=== PATIENT | female | born 1935 | race Caucasian/White ===

== ENCOUNTER 2017-06-09 21:07 | Emergency (ER) | payer MEDICAID ==
[~2017-06-09] VITALS: Ht 149.9 cm; Wt 53.0 kg
[2017-06-09] MEDS ORDERED: ONDANSETRON HCL 4MG/2ML VIAL IV STA (22:44)
[2017-06-09] MEDS ORDERED: MORPHINE SULFATE 4 MG/ML CPJ (NOT FOR IM USE) IV STA (22:44)
[2017-06-09] MEDS ORDERED: SODIUM CHLORIDE 0.9% 1,000 ML IV ONE (22:44)
[2017-06-09 23:18] LABS: HEMATOCRIT. 38.8 % (36.0-48.0); HEMOGLOBIN. 12.9 g/dL (12.0-16.0); MEAN CORPUSCULAR HEMOGLOBIN 28.6 pg (28.0-32.0); MEAN CORPUSCULAR VOLUME 86.1 fL (81.0-99.0); MEAN PLATELET VOLUME 9.6 fl (7.4-10.4); PLATELET 244 x1000/uL (130-400); RED BLOOD CELL COUNT 4.51 mill/uL (4.2-5.4); RED CELL DISTRIBUTION WIDTH 13.5 % (11.6-14.6)
[2017-06-09 23:19] LABS: CHLORIDE 102 mEq/L (98-107)
[2017-06-09 23:22] LABS: INR 2.2; PROTHROMBIN TIME 23.3 sec (9.4-11.6)
[2017-06-09 23:32] LABS: CLARITY URINE CLEAR (CLEAR); COLOR URINE YELLOW (YELLOW); KETONES URINE NEGATIVE (NEGATIVE); LEUKOCYTE ESTERASE URINE NEGATIVE (NEGATIVE); NITRITE URINE NEGATIVE (NEGATIVE); OCCULT BLOOD URINE 1+ (NEGATIVE); PROTEIN URINE 3+ (NEGATIVE); SPECIFIC GRAVITY URINE 1.012 (1.005-1.030); UROBILINOGEN URINE 0.2 E.U./dL (0.2-1.0)
[2017-06-09] MEDS ORDERED: IOHEXOL-350 100 ML BOTTLE ONE (23:39)
[2017-06-10] MEDS ORDERED: SODIUM CHLORIDE 0.9% 1,000 ML IV ONE (01:22)
[2017-06-10] MEDS ORDERED: CARV3.1242 PO (01:23)
[2017-06-10] MEDS ORDERED: DIGO250T4 PO (01:23)
[2017-06-10] MEDS ORDERED: GLIM2TAB2 PO (01:25)
[2017-06-10] MEDS ORDERED: CHOL20004 PO (01:26)
[2017-06-10] MEDS ORDERED: VITA1TAB15 PO (01:31)
[2017-06-10] MEDS ORDERED: LEVO750T46 PO (01:31)
[2017-06-10] MEDS ORDERED: WARF-67 PO (01:35)
[2017-06-10] MEDS ORDERED: HEPARIN 5000 UNITS/ML VIAL IV ONE (01:45)
[2017-06-10] MEDS ORDERED: MORPHINE SULFATE 4 MG/ML CPJ (NOT FOR IM USE) IV ONE (01:45)
[2017-06-10 02:24] LABS: PLATELET ESTIMATE NORMAL
[2017-06-10] MEDS ORDERED: MORPHINE SULFATE 4 MG/ML CPJ (NOT FOR IM USE) IV SCH (08:15)
[2017-06-10] MEDS ORDERED: ONDANSETRON HCL 4MG/2ML VIAL ONE (08:22)
[2017-06-10 09:48] VITALS: BP 156/97
== END 2017-06-10 10:04 | disposition short-term general hospital (02) ==
LOC: ER 21:39
DX: I74.09 Other arterial embolism and thrombosis of abdominal aorta (principal); I70.202 Unspecified atherosclerosis of native arteries of extremities, left leg; I25.10 Atherosclerotic heart disease of native coronary artery without angina pectoris; D72.829 Elevated white blood cell count, unspecified; E11.65 Type 2 diabetes mellitus with hyperglycemia; E11.51 Type 2 diabetes mellitus with diabetic peripheral angiopathy without gangrene; I48.91 Unspecified atrial fibrillation; I10 Essential (primary) hypertension; J90 Pleural effusion, not elsewhere classified; K76.0 Fatty (change of) liver, not elsewhere classified; N28.1 Cyst of kidney, acquired; Z87.440 Personal history of urinary (tract) infections; Z79.01 Long term (current) use of anticoagulants
CPT/HCPCS: 36415; 51702; 71045; 75635; 80053; 81003; 83605; 83690; 84484; 85025; 85610; 86850; 86900; 86901; 93005; 96361; 96374; 96375; 96376; 99285; J1644; J2270; J2405; J7030; Q9967; Z7610; A4315